=== PATIENT | female | born 1995 | race American Indian/Alaskan Native ===

== ENCOUNTER 2017-03-04 17:46 | Emergency (ER) | payer SELFPAY ==
--- NOTE | 2017-03-05 00:13 | Emergency Department Report ---
ED Female HPI - General Chief complaint: Urogenital-Female Stated complaint: STD CHECK Time Seen by Provider: 03/04/17 23:48 Source: patient Mode of arrival: Ambulatory Limitations: No Limitations - History of Present Illness Initial comments: This is a 21-year-old female nontoxic, well nourished in appearance, no acute signs of distress presents to the ED with c/o of possible STD exposure. Patient stated that her boyfriend has been diagnosed today with Trichomonas and she believes has seen thing. Patient denies any vaginal discharge, dysuria, polyuria, hematuria, fever, chills, nausea, vomiting, chest pain, short of breath, abdominal pain, pelvic pain. Patient denies any numbness or tingling. Patient denies any allergies or past medical history. MD Complaint: possible STD Severity scale (0 -10): 0 Improves with: none Worsens with: none Are you Now?: No Associated Symptoms: denies other symptoms. denies: vaginal discharge, vaginal bleeding, abdominal pain, nausea/vomiting, fever/chills, headaches, loss of appetite, dysuria, hematuria, rash, seizure, shortness of breath, syncope, weakness - Related Data Allergies Allergy/AdvReac Type Severity Reaction Status Date / Time No Known Allergies Allergy Verified 03/04/17 19:55 ED Review of Systems ROS: Stated complaint: STD CHECK Other details as noted in HPI Constitutional: denies: chills, fever Eyes: denies: eye pain, eye discharge, vision change ENT: denies: ear pain, throat pain Respiratory: denies: cough, shortness of breath, wheezing Cardiovascular: denies: chest pain, palpitations Endocrine: no symptoms reported Gastrointestinal: denies: abdominal pain, nausea, diarrhea Genitourinary: denies: urgency, dysuria, discharge Musculoskeletal: denies: back pain, joint swelling, arthralgia Skin: denies: rash, lesions Neurological: denies: headache, weakness, paresthesias Psychiatric: denies: anxiety, depression Hematological/Lymphatic: denies: easy bleeding, easy bruising ED Past Medical Hx - Past Medical History Previous Medical History?: No - Surgical History Past Surgical History?: Yes Additional Surgical History: [id number] - Social History Smoking Status: Never Smoker Substance Use Type: None ED Physical Exam - General Limitations: No Limitations General appearance: alert, in no apparent distress - Head Head exam: Present: atraumatic, normocephalic, normal inspection - Eye Eye exam: Present: normal appearance, PERRL, EOMI. Absent: scleral icterus, conjunctival injection, nystagmus, periorbital swelling, periorbital tenderness Pupils: Present: normal accommodation - ENT ENT exam: Present: normal exam, normal orophraynx, mucous membranes moist, TM's normal bilaterally, normal external ear exam - Neck Neck exam: Present: normal inspection, full ROM. Absent: tenderness, meningismus, lymphadenopathy, thyromegaly - Respiratory Respiratory exam: Present: normal lung sounds bilaterally. Absent: respiratory distress, wheezes, rales, rhonchi, stridor, chest wall tenderness, accessory muscle use, decreased breath sounds, prolonged expiratory - Cardiovascular Cardiovascular Exam: Present: regular rate, normal rhythm, normal heart sounds. Absent: bradycardia, tachycardia, irregular rhythm, systolic murmur, diastolic murmur, rubs, gallop - GI/Abdominal GI/Abdominal exam: Present: soft, normal bowel sounds. Absent: distended, tenderness, guarding, rebound, rigid, diminished bowel sounds - Rectal Rectal exam: Present: deferred - External exam: Present: normal external exam, other (central supply manager Ayde RN present during exam). Absent: erythema, swelling, lesions, lacerations, ecchymosis, bleeding Speculum exam: Present: normal speculum exam, other (central supply manager Ayde RN present during exam). Absent: erythema, vaginal discharge, cervical discharge, vaginal bleeding, foreign body, tissue, laceration Bi-manual exam: Present: normal bi-manual exam, other (central supply manager Ayde RN present during exam). Absent: cervical motion tendernes, adnexal tenderness, adnexal mass, uterine enlargement, uterine tenderness - Extremities Exam Extremities exam: Present: normal inspection, full ROM, normal capillary refill. Absent: tenderness, pedal edema, joint swelling, calf tenderness - Back Exam Back exam: Present: normal inspection, full ROM. Absent: tenderness, CVA tenderness (R), CVA tenderness (L), muscle spasm, paraspinal tenderness, vertebral tenderness, rash noted - Neurological Exam Neurological exam: Present: alert, oriented X3, CN II-XII intact, normal gait, reflexes normal - Psychiatric Psychiatric exam: Present: normal affect, normal mood - Skin Skin exam: Present: warm, dry, intact, normal color. Absent: rash ED Course Vital Signs 03/04/17 19:53 Temperature 98.2 F Pulse Rate 74 Respiratory 18 Rate Blood Pressure 99/64 O2 Sat by Pulse 100 Oximetry - Reevaluation(s) Reevaluation #1: 03/05/17 00:12 Patient is speaking in full sentences with no signs of distress noted. ED Medical Decision Making - Medical Decision Making This is a 21-year-old female that presents with possible STD exposure. Patient is stable and was examined by me. Wet prep, gonorrhea and chlamydia, UA obtained. Patient stated she wanted to be treated empirically for STD exposure. Patient received Rocephin and azithromycin in the ED. Patient was instructed to return in 3 days to obtain results of gonorrhea and chlamydia. Patient was also instructed Follow-up with a primary care doctor in 3-5 days or if symptoms worsen and continue return to emergency room as soon as possible. At time time of discharge, the patient does not seem toxic or ill in appearance. No acute signs of distress noted. Patient agrees to discharge treatment plan of care. No further questions noted by the patient. Critical care attestation.: If time is entered above; I have spent that time in minutes in the direct care of this critically ill patient, excluding procedure time. ED Disposition Clinical Impression: Possible exposure to STD Disposition: DC-01 TO HOME OR SELFCARE Is pt being admited?: No Does the pt Need Aspirin: No Condition: Stable Instructions: Safe Sex (ED) Additional Instructions: Follow-up with a primary care doctor in 3-5 days or if symptoms worsen and continue return to emergency room as soon as possible. Referrals: SHAYLA MUELLER MD [Primary Care Provider] - 3-5 Days CAMILO DALE MD [Staff Physician] - 3-[address] [facility] [Outside] - 3-5 Days [facility] [Outside] - 3-5 Days Forms: Work/School Release Form(ED)
[2017-03-05 00:40] LABS: Bilirubin,Urine NEG (Negative); Blood,Urine MOD (Negative); Color,Urine Yellow (Yellow); Mucus,Urine FEW /HPF; Nitrite,Urine NEG (Negative); Protein,Urine <15 mg/dL mg/dL (Negative); Urobilinogen,Urine < 2.0 mg/dL (<2.0)
[2017-03-05 00:47] LABS: HCG Qualitative,Urine Negative (Negative)
[2017-03-05] MEDS ORDERED: XYLOCAINE 1% MPF 5 mL INFILTRATI ONE (01:55)
[2017-03-05] MEDS ORDERED: ZITHROMAX PO ONE (01:55)
[2017-03-05] MEDS ORDERED: ROCEPHIN IM ONE (01:55)
[2017-03-05 02:23] VITALS: BP 108/70
== END 2017-03-05 02:22 | disposition home or self-care (01) ==
LOC: ED 17:46
DX: Z20.2 Contact with and (suspected) exposure to infections with a predominantly sexual mode of transmission (principal)
CPT/HCPCS: 81001; 81025; 87086; 87210; 87591; 96372; 99284; J0696